=== PATIENT | male | born 1990 | race Caucasian/White ===

== ENCOUNTER 2022-03-24 15:15 | Emergency (ER) | payer MEDICAID ==
[~2022-03-24] VITALS: Ht 162.6 cm; Wt 79.5 kg
[2022-03-24] MEDS ORDERED: KETOROLAC TROMETHAMINE 30 MG/ML VIAL IM ONE (16:00)
[2022-03-24 16:37] VITALS: BP 119/76
[2022-03-24] MEDS ORDERED: CYCL-448 PO (16:40)
== END 2022-03-24 18:04 | disposition home or self-care (01) ==
LOC: EMS 15:15
DX: M54.50 Low back pain, unspecified (principal); F12.90 Cannabis use, unspecified, uncomplicated
CPT/HCPCS: 72100; 96372; 99283; J1885

== ENCOUNTER 2022-07-10 00:01 | Emergency (ER) | payer MEDICAID ==
[~2022-07-10] VITALS: Ht 165.1 cm; Wt 77.3 kg
[~2022-07-10 00:01] MED LIST: CYCL-448 PO
[2022-07-10 00:14] VITALS: BP 123/76
== END 2022-07-10 00:14 | disposition left against medical advice (07) ==
LOC: EMS 00:01
DX: Z53.21 Procedure and treatment not carried out due to patient leaving prior to being seen by health care provider (principal)
CPT/HCPCS: 93005

== ENCOUNTER 2022-09-11 17:05 | Emergency (ER) | payer MEDICAID ==
[~2022-09-11] VITALS: Ht 165.1 cm; Wt 72.7 kg
[2022-09-11] MEDS ORDERED: ANUSHCS PR (18:44)
[2022-09-11] MEDS ORDERED: HYDR30CR3 TP (18:44)
[2022-09-11] MEDS ORDERED: POLY238P PO (18:44)
[2022-09-11 19:09] VITALS: BP 107/60
== END 2022-09-11 19:11 | disposition home or self-care (01) ==
LOC: EMS 17:08
DX: K64.8 Other hemorrhoids (principal); F12.90 Cannabis use, unspecified, uncomplicated; F41.9 Anxiety disorder, unspecified; F17.200 Nicotine dependence, unspecified, uncomplicated
CPT/HCPCS: 99282; Z7502

== ENCOUNTER 2023-01-03 19:21 | Emergency (ER) | payer MEDICAID ==
[~2023-01-03] VITALS: Ht 165.1 cm; Wt 72.7 kg
[~2023-01-03 19:21] MED LIST changes: +ANUSHCS PR; +HYDR30CR3 TP; +POLY238P PO
[2023-01-03 19:28] VITALS: BP 125/72
[2023-01-03] MEDS ORDERED: FLUORESCEIN SODIUM 1 MG STRIP OU ONE (20:15)
[2023-01-03] MEDS ORDERED: PROPARACAINE HCL 0.5% 15 ML OPHTHALMIC SOLUTION OU ONE (20:15)
[2023-01-03] MEDS ORDERED: ERYTHROMYCIN 0.5% 3.5 GM TUBE OPHTHALMIC OINTMENT OS ONE (21:15)
[2023-01-03] MEDS ORDERED: OFLOXACIN 0.3% 5 ML OPHTHALMIC SOLUTION OS ONE (21:15)
== END 2023-01-03 22:26 | disposition home or self-care (01) ==
LOC: EMS 19:32
DX: H16.002 Unspecified corneal ulcer, left eye (principal); F41.9 Anxiety disorder, unspecified; F12.90 Cannabis use, unspecified, uncomplicated
CPT/HCPCS: 99283